=== PATIENT | female | born 1990 | race Caucasian/White ===

== ENCOUNTER 2017-11-12 21:03 | Emergency (ER) | END 2017-11-13 02:21 | disposition home or self-care (01) ==

== ENCOUNTER 2017-11-13 22:38 | Emergency (ER) | END 2017-11-14 04:16 | disposition home or self-care (01) ==

== ENCOUNTER 2018-01-20 19:20 | Emergency (ER) | END 2018-01-20 23:05 | disposition home or self-care (01) ==

== ENCOUNTER 2018-02-19 13:50 | Inpatient (IN) | END 2018-02-21 17:00 | disposition home or self-care (01) | DRG 782 ==

== ENCOUNTER 2018-03-01 22:35 | Inpatient (IN) | END 2018-03-08 17:57 | disposition home or self-care (01) | DRG 765 ==

== ENCOUNTER 2018-04-09 19:32 | Emergency (ER) | END 2018-04-10 00:29 | disposition home or self-care (01) ==

== ENCOUNTER 2018-05-05 20:34 | Emergency (ER) | END 2018-05-05 23:00 | disposition left against medical advice (07) ==